=== PATIENT | male | born 1990 | race Caucasian/White ===

== ENCOUNTER 2021-05-23 12:47 | Inpatient (IN) | payer OTHER ==
[~2021-05-23] VITALS: Ht 182.9 cm; Wt 158.5 kg
[2021-05-23] MEDS ORDERED: 0.9% SODIUM CHLORIDE 10 ML SYRINGE IVP PRN (14:45)
[2021-05-23] MEDS ORDERED: DEXAMETHASONE SOD PHOS 4 MG/ML 5 ML VIAL IVP ONE (15:00)
[2021-05-23 15:08] LABS: GLUCOMETER DEV NAME(LOC) ERT.5; GLUCOSE,POINT OF CARE 158 MG/DL (70-110)
[2021-05-23 15:32] LABS: BASOPHILS % (AUTO) 0.5 % (0.0-2.0); EOSINOPHILS % (AUTO) 0.5 % (1.0-6.0); HEMATOCRIT 49.2 % (41-53); HEMOGLOBIN 16.3 g/dL (13.5-17.5); LYMPHOCYTES % (AUTO) 24.2 % (22.0-44.0); MEAN CORPUSCULAR HEMOGLOBIN 26.8 pg (26.0-34.0); MEAN CORPUSCULAR HGB CONC 33.2 G/dL (31.0-37.0); MEAN CORPUSCULAR VOLUME 81 fL (80-100); MONOCYTES # (AUTO) 0.5 K/uL (0.1-1.0); MONOCYTES % (AUTO) 11.1 % (2.0-9.0); NEUTROPHILS # (AUTO) 2.7 K/uL (1.8-7.7); NEUTROPHILS % (AUTO) 63.7 % (40.0-70.0); PLATELET COUNT (AUTO) 119 K/uL (150-450); RED BLOOD CELL COUNT(AUTO) 6.09 MIL/uL (4.50-5.90); RED CELL DISTRIBUTION WIDTH 14.3 % (11.5-14.5)
[2021-05-23 15:46] LABS: D-DIMER 0.19 mg/L FEU (0.00-0.50); PROTHROMBIN TIME 10.9 SEC (9.4-11.6)
[2021-05-23 15:49] LABS: ABG A-A DIFF O2 34.4 mmHg (10-20.0); ABG BASE EXCESS -6.7 mmol/L (-2.0-3.0); ABG CARBOXYHEMOGLOBIN 0.5 % (0.0-3.0); ABG HCO3 19.9 mmol/L (22.0-26.0); ABG METHEMOGLOBIN 0.1 % (0.0-1.5); ABG OXYGEN CONTENT 21.9 mL/dL (15.0-23.0); ABG OXYGEN SATURATION 94.5 % (95.0-98.0); ABG OXYHEMOGLOBIN 93.9 % (94.0-100.0); ABG PCO2 33 mmHg (35-45); ABG PH 7.366 (7.350-7.450); ABG TOTAL HEMOGLOBIN 16.6 G/dL (12.0-18.0); O2 DEVICE,BLOOD GAS ROOM AIR (ROOM AIR); PO2, ARTERIAL BG 75.5 mmHg (80.0-100.0); SITE, BLOOD GAS RT RADIAL; SOURCE, BLOOD GAS ARTERIAL; TEMPERATURE, FAHRENHEIT, BG 98.6 FAHREN (96.0-98.6)
[2021-05-23 15:52] LABS: LACTIC ACID 1.2 mmol/L (0.4-2.0)
[2021-05-23 15:55] LABS: CALCIUM, TOTAL 8.6 mg/dL (8.8-10.5); CREATININE 1.99 mg/dL (0.60-1.30); POTASSIUM 4.5 mmol/L (3.5-5.1)
[2021-05-23] MEDS ORDERED: DILTIAZEM HCL 5 MG/ML 5 ML VIAL IVP ONE (16:00)
[2021-05-23 16:09] LABS: ALBUMIN 3.2 g/dL (3.4-5.0); BILIRUBIN,TOTAL 0.9 mg/dL (0.1-1.0); C-REACTIVE PROTEIN QUANT 5.27 mg/dL (0.00-0.30); TOTAL PROTEIN, SERUM 7.3 g/dL (6.4-8.2)
[2021-05-23 16:34] LABS: COVID AG,FIA SOURCE NASOPHARYNGEAL
[2021-05-23] MEDS ORDERED: AZITHROMYCIN 500 MG/NS 250 ML IV ONE (17:00)
[2021-05-23] MEDS ORDERED: ACETAMINOPHEN 325 MG TABLET PO PRN (17:15)
[2021-05-23] MEDS: APIXABAN 2.5 MG TABLET PO SCH (21:25)
[2021-05-23] MEDS: SODIUM CHLORIDE 0.9% 1,000 ML IV SCH (21:25)
[2021-05-23] MEDS: DOCUSATE SODIUM 100 MG CAPSULE PO SCH (21:26)
[2021-05-23 21:28] VITALS: BP 124/55
[2021-05-23 23:48] VITALS: BP 97/65
[2021-05-24 04:39] VITALS: BP 104/55
[2021-05-24 07:28] LABS: APPEARANCE,URINE CLEAR (CLEAR); GLUCOSE, URINE (UA) NEGATIVE (NEGATIVE); KETONES,URINE TRACE mg/dL (NEGATIVE); LEUKOCYTE ESTERASE ,URINE NEGATIVE (NEGATIVE); NITRATE,URINE NEGATIVE (NEGATIVE); OCCULT BLOOD,URINE NEGATIVE (NEGATIVE); PROTEIN,URINE SEE CONFIRM (NEGATIVE)
[2021-05-24 07:40] LABS: BILIRUBIN,URINE PRELIM. POSITIVE (NEGATIVE)
[2021-05-24 07:42] LABS: BACTERIA,URINE None Seen /HPF (None Seen); RBC,URINE 0-2 /HPF (0-2); SULFOSALICYLIC ACID,URINE 2+ (Negative); WBC,URINE 0-2 /HPF (0-5)
[2021-05-24 08:54] VITALS: BP 121/73
[2021-05-24] MEDS: DIGOXIN 125 MCG TABLET PO SCH (08:58)
[2021-05-24] MEDS: SODIUM CHLORIDE 0.9% 1,000 ML IV SCH ×2 (08:58→22:03)
[2021-05-24] MEDS: DOCUSATE SODIUM 100 MG CAPSULE PO SCH ×2 (08:58→20:23)
[2021-05-24] MEDS: FAMOTIDINE 20 MG TABLET PO SCH (08:58)
[2021-05-24] MEDS: APIXABAN 2.5 MG TABLET PO SCH ×2 (08:58→20:15)
[2021-05-24] MEDS: DEXAMETHASONE SOD PHOS 4 MG/ML VIAL IVP SCH (08:58)
[2021-05-24 11:37] VITALS: BP 121/77
[2021-05-24 16:20] VITALS: BP 121/72
[2021-05-24] MEDS ORDERED: REMDESIVIR 200 MG in SODIUM CHLORIDE 0.9% 250 ML IV ONE (18:00)
[2021-05-24 19:30] VITALS: BP 110/69
[2021-05-24] MEDS ORDERED: DEXTROSE 50%-WATER 25 GM/50 ML SYRINGE IVP PRN (22:00)
[2021-05-24] MEDS: INSULIN GLARGINE,HUM.REC.ANLOG 100 UNITS/ML SQ SCH (22:02)
[2021-05-24] MEDS: INSULIN LISPRO 100 UNITS/ML SQ PRN (22:03)
[2021-05-25] VITALS (7 sets, daily range): BP systolic 108–140; BP diastolic 63–87
[2021-05-25] MEDS: INSULIN LISPRO 100 UNITS/ML SQ PRN ×4 (05:47→21:33)
[2021-05-25 07:50] LABS: ALANINE AMINOTRANSFERASE 48 U/L (12-78); ALBUMIN 2.7 g/dL (3.4-5.0); ALKALINE PHOSPHATASE 75 U/L (46-116); ANION GAP 6 mmol/L (8-16); ASPARTATE AMINOTRANSFERASE 21 U/L (15-37); BILIRUBIN,TOTAL 0.6 mg/dL (0.1-1.0); C-REACTIVE PROTEIN QUANT 1.71 mg/dL (0.00-0.30); CALCIUM, TOTAL 7.9 mg/dL (8.8-10.5); CARBON DIOXIDE 25 mmol/L (22-29); CHLORIDE 102 mmol/L (98-107); CREATININE 1.19 mg/dL (0.60-1.30); GLOMERULAR FILTR. RATE CALC > 60 mL/min (>60); GLUCOSE,RANDOM 221 mg/dL (70-110); POTASSIUM 4.5 mmol/L (3.5-5.1); SODIUM SERUM 133 mmol/L (136-145); TOTAL PROTEIN, SERUM 6.6 g/dL (6.4-8.2); UREA NITROGEN, BLOOD 26 mg/dL (7-18)
[2021-05-25] MEDS: DOCUSATE SODIUM 100 MG CAPSULE PO SCH ×2 (08:01→21:31)
[2021-05-25] MEDS: FAMOTIDINE 20 MG TABLET PO SCH (08:01)
[2021-05-25] MEDS: DIGOXIN 125 MCG TABLET PO SCH (08:01)
[2021-05-25] MEDS: APIXABAN 2.5 MG TABLET PO SCH (08:01)
[2021-05-25] MEDS: DEXAMETHASONE SOD PHOS 4 MG/ML VIAL IVP SCH (08:01)
[2021-05-25] MEDS: SODIUM CHLORIDE 0.9% 1,000 ML IV SCH ×2 (09:15→22:59)
[2021-05-25 11:45] LABS: GLUCOMETER DEV NAME(LOC) 5N.3; GLUCOSE,POINT OF CARE 260 MG/DL (70-110)
[2021-05-25] MEDS: REMDESIVIR 100 MG in SODIUM CHLORIDE 0.9% 250 ML IV SCH (21:31)
[2021-05-25] MEDS: APIXABAN 5 MG TABLET PO SCH (21:31)
[2021-05-25] MEDS: INSULIN GLARGINE,HUM.REC.ANLOG 100 UNITS/ML SQ SCH (21:33)
[2021-05-25] MEDS: BENZONATATE 100 MG CAPSULE PO PRN (22:59)
[2021-05-26 04:01] VITALS: BP 104/63
[2021-05-26] MEDS: INSULIN LISPRO 100 UNITS/ML SQ PRN ×4 (05:42→21:39)
[2021-05-26 08:05] VITALS: BP 115/78
[2021-05-26] MEDS: DOCUSATE SODIUM 100 MG CAPSULE PO SCH ×2 (08:32→21:33)
[2021-05-26] MEDS: DIGOXIN 125 MCG TABLET PO SCH (08:32)
[2021-05-26] MEDS: APIXABAN 5 MG TABLET PO SCH ×2 (08:32→21:33)
[2021-05-26] MEDS: BENZONATATE 100 MG CAPSULE PO PRN (08:32)
[2021-05-26] MEDS: FAMOTIDINE 20 MG TABLET PO SCH (08:32)
[2021-05-26] MEDS: DEXAMETHASONE SOD PHOS 4 MG/ML VIAL IVP SCH (08:33)
[2021-05-26 10:58] LABS: GLUCOMETER DEV NAME(LOC) 5N.3; GLUCOSE,POINT OF CARE 298 MG/DL (70-110)
[2021-05-26 10:58] LABS: GLUCOMETER DEV NAME(LOC) 5N.3; GLUCOSE,POINT OF CARE 200 MG/DL (70-110)
[2021-05-26 10:59] LABS: GLUCOMETER DEV NAME(LOC) 5N.3; GLUCOSE,POINT OF CARE 164 MG/DL (70-110)
[2021-05-26 10:59] LABS: GLUCOMETER DEV NAME(LOC) 5N.3; GLUCOSE,POINT OF CARE 258 MG/DL (70-110)
[2021-05-26] MEDS: SODIUM CHLORIDE 0.9% 1,000 ML IV SCH (11:28)
[2021-05-26 11:55] VITALS: BP 125/84
[2021-05-26] MEDS: GuaiFENesin/D-METHORPHAN [SUGAR-FREE] 200-20MG/10 ML SYRUP UDCUP PO PRN ×2 (12:10→21:41)
[2021-05-26 16:25] VITALS: BP 125/85
[2021-05-26 20:00] VITALS: BP 125/80
[2021-05-26] MEDS: REMDESIVIR 100 MG in SODIUM CHLORIDE 0.9% 250 ML IV SCH (21:33)
[2021-05-26] MEDS: INSULIN GLARGINE,HUM.REC.ANLOG 100 UNITS/ML SQ SCH (21:38)
[2021-05-26 23:28] LABS: GLUCOMETER DEV NAME(LOC) 6S.1; GLUCOSE,POINT OF CARE 303 MG/DL (70-110)
[2021-05-27] MEDS: SODIUM CHLORIDE 0.9% 1,000 ML IV SCH (00:28)
[2021-05-27] MEDS: GuaiFENesin/D-METHORPHAN [SUGAR-FREE] 200-20MG/10 ML SYRUP UDCUP PO PRN ×3 (01:46→21:31)
[2021-05-27 05:21] VITALS: BP 126/86
[2021-05-27] MEDS: INSULIN LISPRO 100 UNITS/ML SQ PRN ×4 (05:24→20:56)
[2021-05-27 05:31] LABS: GLUCOMETER DEV NAME(LOC) 5S.1; GLUCOSE,POINT OF CARE 294 MG/DL (70-110)
[2021-05-27 06:43] LABS: GLUCOMETER DEV NAME(LOC) 6S.1; GLUCOSE,POINT OF CARE 210 MG/DL (70-110)
[2021-05-27 06:44] LABS: BASOPHILS % (AUTO) 0.2 % (0.0-2.0); EOSINOPHILS % (AUTO) 2.7 % (1.0-6.0); HEMATOCRIT 43.4 % (41-53); HEMOGLOBIN 14.4 g/dL (13.5-17.5); LYMPHOCYTES # (AUTO) 1.5 K/uL (1.0-4.8); LYMPHOCYTES % (AUTO) 32.7 % (22.0-44.0); MEAN CORPUSCULAR HGB CONC 33.2 G/dL (31.0-37.0); MEAN CORPUSCULAR VOLUME 81 fL (80-100); MONOCYTES # (AUTO) 0.4 K/uL (0.1-1.0); MONOCYTES % (AUTO) 8.9 % (2.0-9.0); NEUTROPHILS # (AUTO) 2.6 K/uL (1.8-7.7); NEUTROPHILS % (AUTO) 55.5 % (40.0-70.0); PLATELET COUNT (AUTO) 131 K/uL (150-450); RED BLOOD CELL COUNT(AUTO) 5.33 MIL/uL (4.50-5.90); RED CELL DISTRIBUTION WIDTH 14.8 % (11.5-14.5)
[2021-05-27 06:54] LABS: ALANINE AMINOTRANSFERASE 91 U/L (12-78); ALBUMIN 2.7 g/dL (3.4-5.0); ALKALINE PHOSPHATASE 83 U/L (46-116); ANION GAP 9 mmol/L (8-16); ASPARTATE AMINOTRANSFERASE 42 U/L (15-37); BILIRUBIN,TOTAL 0.9 mg/dL (0.1-1.0); CALCIUM, TOTAL 8.4 mg/dL (8.8-10.5); CARBON DIOXIDE 27 mmol/L (22-29); CHLORIDE 102 mmol/L (98-107); CREATININE 0.98 mg/dL (0.60-1.30); GLOMERULAR FILTR. RATE CALC > 60 mL/min (>60); GLUCOSE,RANDOM 207 mg/dL (70-110); POTASSIUM 4.2 mmol/L (3.5-5.1); SODIUM SERUM 138 mmol/L (136-145); TOTAL PROTEIN, SERUM 6.6 g/dL (6.4-8.2); UREA NITROGEN, BLOOD 18 mg/dL (7-18)
[2021-05-27 08:17] VITALS: BP 139/70
[2021-05-27] MEDS: DOCUSATE SODIUM 100 MG CAPSULE PO SCH ×2 (08:40→21:00)
[2021-05-27] MEDS: FAMOTIDINE 20 MG TABLET PO SCH (08:40)
[2021-05-27] MEDS: DEXAMETHASONE SOD PHOS 4 MG/ML VIAL IVP SCH (08:40)
[2021-05-27] MEDS: APIXABAN 5 MG TABLET PO SCH ×2 (08:40→20:50)
[2021-05-27] MEDS: DIGOXIN 125 MCG TABLET PO SCH (08:40)
[2021-05-27 12:15] LABS: GLUCOMETER DEV NAME(LOC) 6N.1; GLUCOSE,POINT OF CARE 240 MG/DL (70-110)
[2021-05-27 18:31] LABS: GLUCOMETER DEV NAME(LOC) 6N.1; GLUCOSE,POINT OF CARE 362 MG/DL (70-110)
[2021-05-27 20:19] VITALS: BP 139/91
[2021-05-27 20:22] LABS: GLUCOMETER DEV NAME(LOC) 5N.3; GLUCOSE,POINT OF CARE 200 MG/DL (70-110)
[2021-05-27] MEDS: REMDESIVIR 100 MG in SODIUM CHLORIDE 0.9% 250 ML IV SCH (20:50)
[2021-05-27] MEDS: INSULIN GLARGINE,HUM.REC.ANLOG 100 UNITS/ML SQ SCH (20:55)
[2021-05-27 21:39] LABS: GLUCOMETER DEV NAME(LOC) 6S.1; GLUCOSE,POINT OF CARE 402 MG/DL (70-110)
[2021-05-28 04:25] VITALS: BP 127/78
[2021-05-28] MEDS: INSULIN LISPRO 100 UNITS/ML SQ PRN ×4 (04:26→20:27)
[2021-05-28] MEDS: GuaiFENesin/D-METHORPHAN [SUGAR-FREE] 200-20MG/10 ML SYRUP UDCUP PO PRN ×2 (04:28→08:54)
[2021-05-28 06:46] LABS: GLUCOMETER DEV NAME(LOC) 6N.1; GLUCOSE,POINT OF CARE 221 MG/DL (70-110)
[2021-05-28 07:38] LABS: HEMOGLOBIN A1C 6.8 % (3.8-5.6)
[2021-05-28 08:06] LABS: ALANINE AMINOTRANSFERASE 111 U/L (12-78); ALBUMIN 2.7 g/dL (3.4-5.0); ALKALINE PHOSPHATASE 101 U/L (46-116); ANION GAP 8 mmol/L (8-16); ASPARTATE AMINOTRANSFERASE 33 U/L (15-37); C-REACTIVE PROTEIN QUANT 4.43 mg/dL (0.00-0.30); CALCIUM, TOTAL 9.1 mg/dL (8.8-10.5); CARBON DIOXIDE 28 mmol/L (22-29); CHLORIDE 101 mmol/L (98-107); CREATININE 1.08 mg/dL (0.60-1.30); FERRITIN 429 ng/mL (26-388); GLOMERULAR FILTR. RATE CALC > 60 mL/min (>60); GLUCOSE,RANDOM 186 mg/dL (70-110); POTASSIUM 4.4 mmol/L (3.5-5.1); SODIUM SERUM 137 mmol/L (136-145); TOTAL PROTEIN, SERUM 7.2 g/dL (6.4-8.2); UREA NITROGEN, BLOOD 17 mg/dL (7-18)
[2021-05-28 08:23] VITALS: BP 111/74
[2021-05-28] MEDS: CHOLECALCIFEROL (VIT D3) 5,000 [125 MCG] UNITS CAPSULE PO SCH (08:54)
[2021-05-28] MEDS: APIXABAN 5 MG TABLET PO SCH ×2 (08:54→20:19)
[2021-05-28] MEDS: DOCUSATE SODIUM 100 MG CAPSULE PO SCH ×2 (08:54→20:30)
[2021-05-28] MEDS: DEXAMETHASONE 4 MG TABLET PO SCH (08:54)
[2021-05-28] MEDS: DIGOXIN 125 MCG TABLET PO SCH (08:54)
[2021-05-28] MEDS: FAMOTIDINE 20 MG TABLET PO SCH (08:54)
[2021-05-28] MEDS: MULTIVITAMINS, THERAPEUTIC TABLET PO SCH (08:54)
[2021-05-28 14:04] LABS: GLUCOMETER DEV NAME(LOC) 6S.1; GLUCOSE,POINT OF CARE 257 MG/DL (70-110)
[2021-05-28 19:30] VITALS: BP 134/87
[2021-05-28] MEDS: REMDESIVIR 100 MG in SODIUM CHLORIDE 0.9% 250 ML IV SCH (20:18)
[2021-05-28] MEDS: INSULIN GLARGINE,HUM.REC.ANLOG 100 UNITS/ML SQ SCH (20:30)
[2021-05-28 22:02] LABS: GLUCOMETER DEV NAME(LOC) 6N.1; GLUCOSE,POINT OF CARE 361 MG/DL (70-110)
[2021-05-28 23:12] LABS: GLUCOMETER DEV NAME(LOC) 6S.1; GLUCOSE,POINT OF CARE 417 MG/DL (70-110)
[2021-05-29 05:42] VITALS: BP 139/86
[2021-05-29] MEDS: INSULIN LISPRO 100 UNITS/ML SQ PRN ×4 (05:46→20:32)
[2021-05-29 06:46] LABS: GLUCOMETER DEV NAME(LOC) 6S.1; GLUCOSE,POINT OF CARE 278 MG/DL (70-110)
[2021-05-29 07:20] LABS: ALANINE AMINOTRANSFERASE 88 U/L (12-78); ALBUMIN 2.6 g/dL (3.4-5.0); ALKALINE PHOSPHATASE 103 U/L (46-116); ANION GAP 9 mmol/L (8-16); ASPARTATE AMINOTRANSFERASE 21 U/L (15-37); BILIRUBIN,TOTAL 1.1 mg/dL (0.1-1.0); CALCIUM, TOTAL 9.1 mg/dL (8.8-10.5); CARBON DIOXIDE 28 mmol/L (22-29); CHLORIDE 100 mmol/L (98-107); CREATININE 1.12 mg/dL (0.60-1.30); FERRITIN 419 ng/mL (26-388); GLOMERULAR FILTR. RATE CALC > 60 mL/min (>60); GLUCOSE,RANDOM 269 mg/dL (70-110); POTASSIUM 4.5 mmol/L (3.5-5.1); SODIUM SERUM 137 mmol/L (136-145); UREA NITROGEN, BLOOD 19 mg/dL (7-18)
[2021-05-29 08:20] VITALS: BP 134/82
[2021-05-29] MEDS: MULTIVITAMINS, THERAPEUTIC TABLET PO SCH (08:33)
[2021-05-29] MEDS: FAMOTIDINE 20 MG TABLET PO SCH (08:33)
[2021-05-29] MEDS: DEXAMETHASONE 4 MG TABLET PO SCH (08:33)
[2021-05-29] MEDS: DIGOXIN 125 MCG TABLET PO SCH (08:33)
[2021-05-29] MEDS: CHOLECALCIFEROL (VIT D3) 5,000 [125 MCG] UNITS CAPSULE PO SCH (08:33)
[2021-05-29] MEDS: APIXABAN 5 MG TABLET PO SCH ×2 (08:33→20:30)
[2021-05-29] MEDS: DOCUSATE SODIUM 100 MG CAPSULE PO SCH ×2 (08:37→20:30)
[2021-05-29] MEDS ORDERED: INSULIN GLARGINE,HUM.REC.ANLOG 100 UNITS/ML SQ SCH (09:00)
[2021-05-29] MEDS ORDERED: INSULIN GLARGINE,HUM.REC.ANLOG 100 UNITS/ML SQ ONE (11:15)
[2021-05-29 13:46] LABS: GLUCOMETER DEV NAME(LOC) 6S.1; GLUCOSE,POINT OF CARE 270 MG/DL (70-110)
[2021-05-29 19:09] VITALS: BP 135/89
[2021-05-29 19:22] LABS: GLUCOMETER DEV NAME(LOC) 6N.1; GLUCOSE,POINT OF CARE 383 MG/DL (70-110)
[2021-05-29] MEDS: INSULIN GLARGINE,HUM.REC.ANLOG 100 UNITS/ML SQ SCH (20:30)
[2021-05-29 21:51] LABS: GLUCOMETER DEV NAME(LOC) 6N.1; GLUCOSE,POINT OF CARE 445 MG/DL (70-110)
[2021-05-30 04:40] VITALS: BP 135/88
[2021-05-30] MEDS: INSULIN LISPRO 100 UNITS/ML SQ PRN (05:16)
[2021-05-30 07:07] LABS: GLUCOMETER DEV NAME(LOC) 6S.1; GLUCOSE,POINT OF CARE 327 MG/DL (70-110)
[2021-05-30] MEDS ORDERED: INSULIN GLARGINE,HUM.REC.ANLOG 100 UNITS/ML SQ SCH (09:00)
== END 2021-05-30 06:41 | DRG 177 ==
LOC: EMS 12:50 → 5N 18:40 → 6S 05-26 18:45
PROVIDERS: ADMIT Internal Medicine; ATTEND Internal Medicine
PROC: XW033E5 Introduction of Remdesivir Anti-infective into Peripheral Vein, Percutaneous Approach, New Technology Group 5 (ICD-10-PCS; principal; 2021-05-25)
DX: U07.1 COVID-19 (principal); J12.82 Pneumonia due to coronavirus disease 2019; J96.91 Respiratory failure, unspecified with hypoxia; N17.9 Acute kidney failure, unspecified; Z68.42 Body mass index [BMI] 45.0-49.9, adult; I48.91 Unspecified atrial fibrillation; I10 Essential (primary) hypertension; I48.0 Paroxysmal atrial fibrillation; E66.9 Obesity, unspecified; R00.0 Tachycardia, unspecified; F17.210 Nicotine dependence, cigarettes, uncomplicated; E11.9 Type 2 diabetes mellitus without complications; R79.82 Elevated C-reactive protein (CRP); Z79.899 Other long term (current) drug therapy; Z79.4 Long term (current) use of insulin
CPT/HCPCS: 36600; 71045; 80053; 81001; 81002; 82550; 82728; 82805; 82962; 83036; 83605; 83615; 83880; 84484; 85025; 85379; 85610; 85730; 86140; 87040; 93005; 99291; A9575; J0456; J1100; J1815; J3490; J7030; J7050; J8540; 36415-L1; 36415-TC; U0003